=== PATIENT | female | born 1965 | race African-American/Black ===

== ENCOUNTER → 2017-07-07 | Outpatient (CLI) | payer OTHER ==
[2015-05-18 20:30] VITALS: BP 130/70
--- NOTE | 2017-07-12 17:09 | MG ---
HISTORY: SCREENING Comparison: March 13, 2013 FINDINGS: Bilateral CC and MLO projections of the right and left breast were obtained. Heterogeneously dense f ibroglandular tissue is seen to be present with overall decreased size of the breasts as compared to the prior for which clinical correlation with weight loss is recommended. There is no dominant suspi cious mass or architectural distortion. However, there is focal asymmetry in the lateral left breast at mid to posterior depth best seen on the craniocaudal view which may be related to overall changes in glandular composition as well as differences in spot compression and positioning but for which fur ther imaging evaluation is recommended given the apparent interval change. No skin thickening or nip ple retraction is appreciated. No pathological lymphadenopathy can be identified. Benign-appearing calcifications are noted within the right and left breast. IMPRESSION: Left breast focal asymmetry for which follow-up spot compression and mL views are recomm ended. If the findings persist, targeted sonography is recommended. ACR CATEGORY 0 - assessment incomplete; additional imaging recommended. Diagnostic CAD was utilized and reviewed. * 0 (ZERO) - ASSESSMENT INCOMPLETE; ADDITIONAL IMAGING IS NEEDED. * 1/1 (ONE) - NEGATIVE. * 2/II (TWO) - BENIGN FINDINGS. * 3/III (THREE) - PROBABLY BENIGN FINDING; SHORT INTERVAL FOLLOW-UP SUGGESTED. * 4/IV (FOUR) - SUSPICIOUS ABNORMALITY; BIOPSY SHOULD BE CONSIDERED. * 5/V - HIGHLY SUSPICIOUS OF MALIGNANCY; BIOPSY SHOULD BE PERFORMED. A NEGATIVE X-RAY REPORT SHOULD NOT DELAY BIOPSY IF A DOMINANT OR CLINICALLY SUSPICIOUS MASS IS PRESENT; 4 TO 8 PERCENT OF CANCERS ARE NOT IDENTIFIED BY X-RAY. A NEGA TIVE REPORT MAY REINFORCE THE CLINICAL IMPRESSION. ADENOSIS AND DENSE BREASTS MAY OBSCURE AN UNDERLY ING NEOPLASM. Reported By:
== END ==
LOC: RAD 10:16
PROVIDERS: ATTEND Nurse Practitioner Family
DX: Z12.31 Encounter for screening mammogram for malignant neoplasm of breast (principal); R92.8 Other abnormal and inconclusive findings on diagnostic imaging of breast
CPT/HCPCS: 77067